=== PATIENT | male | born 1965 | race Caucasian/White ===

== ENCOUNTER 2020-01-03 13:34 | Emergency (ER) | payer BC, SELFPAY ==
--- NOTE | ~2020-01-03 | XR_ITS ---
XR chest 1V portable DATE: 01/03/2020 13:58 INDICATION: Anterior chest pain, acute onset TECHNIQUE: Portable upright AP chest views on 01/03/2020 at 1357 hours COMPARISON: None FINDINGS: Normal heart size. No hilar or mediastinal enlargement. No pulmonary infiltrate or consolid ation, pleural effusion or pulmonary vascular congestion or pneumothorax. IMPRESSION: No active cardiopulmonary disease Reviewed, dictated and finalized at location A.
[2020-01-03 13:36] VITALS: BP 178/89; PULSE 131; RESP 18; TEMP 37.7; O2SAT 100
--- NOTE | 2020-01-03 13:41 | ECG_ITS ---
Measurements Intervals [place] Rate: 109 P: 58 VA: 156 QRS: -22 QRSD: 110 T: 27 QT: 319 QTc: 431 Interpretive Statements SINUS TACHYCARDIA POSSIBLE LEFT ATRIAL ENLARGEMENT INCOMPLETE RIGHT BUNDLE BRANCH BLOCK BASELINE ARTIFACT- II, III, AVF ABNORMAL ECG Electronically Signed On 01-03-2020 14:20:11 CDT by Cr Saleh D.O.
[2020-01-03] MEDS: ASPIRIN 81 MG CHEWABLE TABLET 324 MG PO (13:55)
[2020-01-03 14:05] LABS: Basophils Absolute Auto 0.1 K/mm3 (0.0-0.1); Basophils Percent Auto 0.7 % (0.2-1.2); Eosinophils Absolute Auto 0.2 K/mm3 (0-0.3); Eosinophils Percent Auto 2.2 % (0-4.4); Hematocrit 44.9 % (42.0-52.0); Hemoglobin 16.5 g/dL (14.0-18.0); Immature Granulocyte Absolute 0.02 K/mm3 (0.00-0.031); Immature Granulocyte Percent A 0.3 % (0-0.5); Lymphocytes Absolute Auto 2.47 K/mm3 (0.9-3.2); Mean Corpuscular HGB Conc 36.7 g/dl (32-36); Mean Corpuscular Hemoglobin 33.6 pg (26-34); Mean Corpuscular Volume 91.4 fl (80-100); Mean Platelet Volume 10.2 fl (7.4-10.4); Monocytes Absolute Auto 0.7 K/mm3 (0.1-0.6); Monocytes Percent Auto 10.8 % (2.6-8.5); Neutrophils Absolute Auto 3.4 K/mm3 (1.3-6.7); Platelet Count Result 194 k/mm3 (150-375); Red Blood Count 4.91 M/mm3 (4.6-6.20); Red Cell Distribution Width 11.5 % (11.5-14.5); White Blood Count 6.9 K/mm3 (4.5-10.0)
[2020-01-03 14:17] LABS: Blood Urea Nitrogen 17 mg/dL (9-20); Calcium 9.5 mg/dL (8.4-10.2); Carbon Dioxide 25 mmol/L (22-30); Chloride 104 mmol/L (98-107); Estimated CRCL calculation 99 ml/min; Estimated Glomerular Filt Rate > 60; Glucose 125 mg/dL (75-110); Potassium 3.5 mmol/L (3.4-5.0); Sodium 139 mmol/L (137-145)
[2020-01-03 14:20] LABS: INR 1.1
[2020-01-03 14:29] LABS: Troponin I < 0.012 ng/mL (0.000-0.034)
[2020-01-03 14:30] VITALS: BP 168/82; PULSE 110; RESP 16; O2SAT 99
[2020-01-03 15:02] LABS: D Dimer 0.27 ug/mL (<0.48)
[2020-01-03 15:11] LABS: NT Pro B Type Natriuretic Pept 28 PG/ML (5-100)
--- NOTE | 2020-01-03 15:26 | ED.CHESTPAIN ---
HPI - Chest Pain General Chief Complaint: Chest Pain Stated Complaint: chest tightness and pain Time Seen by Provider: 01/03/20 13:45 Source: patient Mode of arrival: ambulatory Limitations: no limitations History of Present Illness HPI narrative: This is a 54 year old male that presents to the ER for chest pain this morning. Reports he was lifting a heavy box and started to have chest tightness. Reports this resolved on its own. Reports he recently saw a doctor for some intermittent chest tightness that he has been having and was diagnosed with asthma. He has been using an albuterol inhaler with relief. Currently denies any chest pain or shortness of breath. Related Data Home Medications Medication Instructions Recorded Confirmed albuterol sulfate INHALATION 01/03/20 amlodipine 01/03/20 Allergies Allergy/AdvReac Type Severity Reaction Status Date / Time No Known Allergies Allergy Verified 01/03/20 13:55 Review of Systems Review of Systems: Narrative: CONSTITUTIONAL: Denies fever CARDIOVASCULAR: Reports chest pain. Denies palpitations, or edema. RESPIRATORY: Denies cough or dyspnea. All systems reviewed & are unremarkable except as noted in HPI and below PMFSH Past Medical History Medical History (Updated 01/03/20 @ 17:27 by Moon Kaminski PA-C) History of hypertension Social History Social History (Updated 01/03/20 @ 17:24 by Moon Kaminski PA-C) Smoking status: Never smoker Substance use: never Gender identity (if verbalized by the patient): Male Exam Narrative: Exam Narrative: GENERAL: Well-appearing, well-nourished, and in no acute distress. HEAD: Normocephalic, atraumatic. EYES: EOMI. NECK: Supple. No adenopathy or masses. No carotid bruits or JVD CHEST: Clear to auscultation. No respiratory distress. No wheezes rales or rhonchi HEART: Regular rate and rhythm. No murmur heard. Normal peripheral pulses. EXTREMITIES: Normal range of motion. No edema. SKIN: Warm, dry, no rash. NEURO: No focal deficits. Alert and oriented x3. PSYCH: Normal mood and affect Course Vital Signs Vital signs: Vital Signs Temperature 99.8 F H 01/03/20 13:36 Pulse Rate 131 H 01/03/20 13:36 Respiratory Rate 18 01/03/20 13:36 Blood Pressure 178/89 H 01/03/20 13:36 Pulse Oximetry 100 01/03/20 13:36 Temperature 99.8 F H 01/03/20 13:36 Pulse Rate 131 H 01/03/20 13:36 Respiratory Rate 18 01/03/20 13:36 Blood Pressure 178/89 H 01/03/20 13:36 Pulse Oximetry 100 01/03/20 13:36 MDM - Chest Pain MDM Narrative Medical decision making narrative: Patient presents to the emergency department for an episode of chest pain this morning. Reports this happened after lifting a heavy box. Patient currently denies any chest pain. CBC and metabolic panel are without acute findings. Baseline and 3-hour troponin are negative. D-dimer is not elevated. BNP is normal. Chest x-ray without acute findings. EKG is without concerning changes. Patient has remained chest pain-free while in the ED. Heart score is 2. Patient is stable and felt appropriate for further outpatient evaluation. He is to follow-up with his primary care doctor. He was given warnings to return to the ER Lab Data Attestation: I reviewed the patient's lab results. Result diagrams: 01/03/20 13:57 01/03/20 13:57 Labs: Lab Results 01/03/20 01/03/20 01/03/20 Range/Units 13:57 13:57 13:57 WBC 6.9 (4.5-10.0) K/mm3 RBC 4.91 (4.6-6.20) M/mm3 Hgb 16.5 (14.0-18.0) g/dL Hct 44.9 (42.0-52.0) % MCV 91.4 (80-100) fl MCH 33.6 (26-34) pg MCHC 36.7 H (32-36) g/dl RDW 11.5 (11.5-14.5) % Plt Count 194 (150-375) k/mm3 MPV 10.2 (7.4-10.4) fl Immature Gran % (Auto) 0.3 (0-0.5) % Neut % (Auto) 50.0 (45.5-73.1) % Lymph % (Auto) 36.0 (18.3-44.2) % [place] % (Auto) 10.8 H (2.6-8.5) % Eos % (Auto) 2.2 (0-4.4) % Baso % (Auto) 0.7 (0.2
[2020-01-03 15:30] VITALS: BP 162/72; PULSE 98; RESP 16; O2SAT 97
[2020-01-03 16:30] VITALS: BP 160/76; PULSE 88; RESP 16; O2SAT 99
[2020-01-03 17:10] LABS: Troponin I < 0.012 ng/mL (0.000-0.034)
== END 2020-01-03 17:35 | disposition home or self-care (01) ==
PROVIDERS: Physician Assistant; Emergency Provider Emergency Medicine; PCP Internal Medicine
DX: R07.9 Chest pain, unspecified (principal); I10 Essential (primary) hypertension; R00.0 Tachycardia, unspecified; I45.10 Unspecified right bundle-branch block; R94.31 Abnormal electrocardiogram [ECG] [EKG]
CPT/HCPCS: 36415; 71045; 80048; 83880; 84484; 85025; 85380; 85610; 85730; 93005; 99284; A9270

== ENCOUNTER 2020-11-11 16:05 | Outpatient (CLI) | payer BC, SELFPAY | END 2020-11-11 16:06 | disposition home or self-care (01) | LOC: ANHCOVIDVC 16:05 | PROVIDERS: PCP Internal Medicine | DX: Z23 Encounter for immunization (principal) | CPT/HCPCS: 0001A; 91300 ==

== ENCOUNTER 2020-12-02 17:23 | Outpatient (CLI) | payer BC, SELFPAY | END 2020-12-02 17:24 | disposition home or self-care (01) | LOC: ANHCOVIDVC 17:23 | PROVIDERS: PCP Internal Medicine | DX: Z23 Encounter for immunization (principal) | CPT/HCPCS: 0002A; 91300 ==